=== PATIENT | male | born 1995 | race African-American/Black ===

== ENCOUNTER 2021-04-02 18:59 | Emergency (ER) | payer SELFPAY ==
[~2021-04-02] VITALS: Ht 180.3 cm; Wt 65.9 kg
[2021-04-02 19:44] VITALS: BP 91/75
[2021-04-02] MEDS ORDERED: HYDR30CR33 RC (20:00)
[2021-04-02] MEDS ORDERED: DEXAMETHASONE 4 MG TABLET PO ONE (20:00)
--- NOTE | 2021-04-02 20:01 | PHYS DOC ---
General Adult EDM: Chief Complaint: SKIN RASH/ABSCESS HPI: HPI: Patient is a 25 year old male who presents with contact dermatitis type rash to the left neck that is itchy. He states he has been up and about outside but is not sure what he was allergic to. No drainage. Denies any trouble breathing, w heezing, facial swelling or rash any other places. Denies any pain. He is also concerned that over the last year or so he has been getting intermittent headaches with some nausea. He states that recently is gotten a little bit worse. He states he is under a little bit more stress and is having more mental health problems. He states he was recently at a mental health facility. He states that he goes and sees his primary care doctor tomorrow. He has a history of anxiety, depression, smoking. Review of Systems: Review of Systems: Constitutional: Denies fever or chills. [] Eyes: Denies change in visual acuity. [] HENT: Denies nasal congestion or sore throat. [] Respiratory: Denies cough or shortness of breath. [] Cardiovascular: Denies chest pain or edema. [] GI: Denies abdominal pain, + intermittent nausea, denies vomiting, bloody stools or diarrhea. [] : Denies dysuria. [] Musculoskeletal: Denies back pain or joint pain. [] Integument: + Left neck rash. [] Neurologic: + Intermittent headache, denies focal weakness or sensory changes. [] Endocrine: Denies polyuria or polydipsia. [] Lymphatic: Denies swollen glands. [] Psychiatric: Denies depression or anxiety. [] Heart Score: C/O Chest Pain: No Allergies: Allergies: Allergies Coded Allergies Type Severity Reaction Last Updated Verified No Known Drug Allergies 04/02/21 No Physical Exam: PE: Constitutional: Well developed, well nourished, no acute distress, non-toxic appearance. [] HENT: Normocephalic, atraumatic, bilateral external ears normal, oropharynx moist, no oral exudates, nose normal. [] Eyes: PERRLA, EOMI, conjunctiva normal, no discharge. [] Neck: Normal range of motion, no tenderness, supple, no stridor. [] Cardiovascular:Heart rate regular rhythm, no murmur [] Lungs & Thorax: Bilateral breath sounds clear to auscultation [] Abdomen: Bowel sounds normal, soft, no tenderness, no masses, no pulsatile masses. [] Skin: Warm, dry, no erythema, left neck contact dermatitis reddened, nondraining rash. [] Back: No tenderness, no CVA tenderness. [] Extremities: No tenderness, no cyanosis, no clubbing, ROM intact, no edema. [] Neurologic: Alert and oriented X 3, normal motor function, normal sensory function, no focal deficits noted. [] Psychologic: Affect normal, judgement normal, mood normal. [] EKG: EKG: [] Radiology/Procedures: Radiology/Procedures: [] Course & Med Decision Making: Course & Med Decision Making Pertinent Labs and Imaging studies reviewed. (See chart for details) See HPI. Alert and oriented x4. Ambulatory steady gait. Speaks in full clear sentences. Skin pink warm and dry. Contact dermatitis type rash to the left neck that is reddened and almost appear as hives. No swelling of the neck. No wheezing. Denies shortness of breath, chest pain, nausea, vomiting at this time. Denies any current abdominal pain or fever. Neurovascularly intact. No focal weaknesses. Not currently having any kind of headache or vision change. Denies any current numbness or tingling. Denies injuring his head. Patient is given a dose of dexamethasone. He is to follow-up with his primary care doctor as scheduled tomorrow. [] Sadiq Disclaimer: Sadiq Disclaimer: This electronic medical record was generated, in whole or in part, using a voice recognition dictation system. Departure Departure Impression: Primary Impression: Contact dermatitis Qualified Codes: L25.9 - Unspecified contact dermatitis, unspecified cause Disposition: HOME / SELF CARE / HOMELESS Condition: STABLE Patient Instructions: Contact Dermatitis Additional Instructions: Use medication as prescribed. Continue taking all your other medications. Take Tylenol or ibuprofen for pain. Follow-up with your doctor as scheduled tomorrow. Scripts Hydrocortisone/Pramoxine (HYDROCORT-PRAMOXINE 2.5-1% CRM) 30 Gm Cream.appl 1 DANA RC BID for 7 Days, #30 GM 0 Refills Prov: RENETTAIKERPARISH Limon APRN 04/02/21 IKER JACKSON APRN Apr 02, 2021 20:01
== END 2021-04-02 20:10 | disposition home or self-care (01) ==
LOC: ER 18:59
DX: L25.9 Unspecified contact dermatitis, unspecified cause (principal)
CPT/HCPCS: 99283